=== PATIENT | male | born 1975 | race Two or more races ===

== ENCOUNTER 2023-07-19 08:05 | Emergency (ER) | payer OTHER ==
[~2023-07-19] VITALS: Ht 165.1 cm; Wt 63.7 kg
[2023-07-19 08:32] VITALS: BP 109/66; TEMP 98.3
[2023-07-19] MEDS ORDERED: Calcium Gluconate 1GM/10ML 4.65 MEQ in IV NS 0.9% 100 ML IV ONE (10:00)
[2023-07-19 10:23] LABS: BASOPHILS # (AUTO) 0.1 K/uL (0.0-0.2); BASOPHILS % (AUTO) 1.1 % (0.0-2.0); EOSINOPHILS # (AUTO) 0.3 K/uL (0.0-0.7); HEMATOCRIT 37 % (39-51); HEMOGLOBIN 12.1 g/dL (13.5-17.5); LYMPHOCYTES # (AUTO) 1.3 K/uL (0.8-4.8); LYMPHOCYTES % (AUTO) 21.1 % (20.0-44.0); MEAN CORPUSCULAR HEMOGLOBIN 32 PG (26.0-33.0); MEAN CORPUSCULAR HGB CONC 33 g/dl (31.0-36.0); MEAN CORPUSCULAR VOLUME 97 fL (80-96); MONOCYTES # (AUTO) 0.6 K/uL (0.1-1.30); MONOCYTES % (AUTO) 9.3 % (2.0-12.0); NEUTROPHILS % (AUTO) 63.5 % (43.0-81.0); PLATELET COUNT (AUTO) 281 K/uL (150-450); RED BLOOD CELL COUNT(AUTO) 3.81 MIL/uL (4.5-6.0); RED CELL DISTRIBUTION WIDTH 17.9 % (11.5-15.0); WHITE BLOOD COUNT (AUTO) 6.3 K/uL (4.3-11.0)
[2023-07-19 10:24] LABS: CALCIUM, SERUM 9.2 mg/dL (8.5-10.1); POTASSIUM 4.2 mmol/L (3.5-5.1)
[2023-07-19 10:25] LABS: CREATININE 9.8 mg/dL (0.6-1.3)
[2023-07-19 13:37] VITALS: O2SAT 98
== END 2023-07-19 13:38 | disposition home or self-care (01) ==
LOC: ER 08:15
DX: I12.0 Hypertensive chronic kidney disease with stage 5 chronic kidney disease or end stage renal disease (principal); N18.6 End stage renal disease; Z98.890 Other specified postprocedural states
CPT/HCPCS: 99285; 96365; 93005; 85025; 80048; 87040 ×2; 36415; 93931; 93971; J0610; J7030; 93930-TC

== ENCOUNTER 2023-08-03 19:49 | Emergency (ER) | payer OTHER ==
[~2023-08-03] VITALS: Ht 165.1 cm; Wt 67.6 kg
[2023-08-03 19:55] VITALS: BP 144/86; TEMP 98.2; O2SAT 98
== END 2023-08-03 20:23 | disposition left against medical advice (07) ==
LOC: ER 19:53
DX: F12.90 Cannabis use, unspecified, uncomplicated (principal); Z53.21 Procedure and treatment not carried out due to patient leaving prior to being seen by health care provider